=== PATIENT | male | born 1995 | race Two or more races ===

== ENCOUNTER 2022-01-12 08:47 | Emergency (ER) | payer OTHER ==
[~2022-01-12] VITALS: Ht 167.6 cm; Wt 75.7 kg
== END 2022-01-12 12:02 | disposition home or self-care (01) ==
LOC: ER 08:47
DX: S90.31XA Contusion of right foot, initial encounter (principal); X50.9XXA Other and unspecified overexertion or strenuous movements or postures, initial encounter; Y93.9 Activity, unspecified; Y92.832 Beach as the place of occurrence of the external cause; Z88.0 Allergy status to penicillin